=== PATIENT | male | born 1985 | race Caucasian/White ===

== ENCOUNTER 2020-08-01 15:25 | Emergency (ER) | payer MEDICAID, OTHER ==
[~2020-08-01] VITALS: Ht 185.4 cm; Wt 104.3 kg
[2020-08-01 16:01] VITALS: BP 177/112
[2020-08-01 19:39] LABS: Basophils # (auto) 0 10 ^3/uL (0-0.2); Basophils % (auto) 0.4 % (0.0-2.0); Eosinophils # (auto) 0.1 10 ^3/uL (0-0.8); Hematocrit 46.8 % (41.0-53.0); Hemoglobin 16.8 g/dL (13.5-17.5); Lymphocytes # (auto) 2.3 10 ^3/uL (0.4-5.4); Lymphocytes % (auto) 32.2 % (10.0-50.0); Mean Corpuscular Hemoglobin 33.4 pg (28.0-32.0); Mean Corpuscular Hgb Conc. 35.8 g/dL (32.0-36.0); Mean Corpuscular Volume 93.3 fL (80.0-100.0); Monocytes # (auto) 0.5 10 ^3/uL (0-1.3); Monocytes % (auto) 6.3 % (0.0-12.0); Neutrophils # (auto) 4.3 10 ^3/uL (1.6-8.6); Neutrophils % (auto) 60.1 % (37.0-80.0); Nucleated Red Blood Cells % 0.4 %; Platelet Count (auto) 357 10^3/uL (140-450); Red Blood Cells 5.02 10^6/uL (4.5-5.90); Red Cell Distribution Width 14.1 % (11.8-14.3); White Blood Cell 7.1 10^3/uL (4.4-10.8)
[2020-08-01 20:03] LABS: Albumin 3.6 g/dL (3.4-5.0); Calcium 8.3 mg/dL (8.5-10.1); Potassium 3.3 mmol/L (3.5-5.1)
[2020-08-01 20:09] LABS: Bilirubin, Total 0.5 mg/dL (0.2-1.0)
[2020-08-01 20:20] LABS: BUN/Creatinine Ratio 16.1; Blood Alcohol 87.3 mg/dL (0-5); Total Protein 8.3 g/dL (6.4-8.2)
== END 2020-08-01 19:30 | disposition left against medical advice (07) ==
LOC: ER 15:25
DX: R20.0 Anesthesia of skin (principal); Z53.21 Procedure and treatment not carried out due to patient leaving prior to being seen by health care provider
CPT/HCPCS: 36415; 80053; 80320; 85025

== ENCOUNTER 2022-02-19 06:39 | Emergency (ER) | payer MEDICAID ==
[~2022-02-19] VITALS: Ht 185.4 cm; Wt 105.2 kg
[2022-02-19 08:23] VITALS: BP 170/99
[2022-02-19] MEDS ORDERED: TETANUS-DIPTH-ACEL PERTUSSIS 0.5ML SYR Tdap IM ONE (10:00)
[2022-02-19] MEDS ORDERED: CEPH-509 PO (10:14)
== END 2022-02-19 10:24 | disposition home or self-care (01) ==
LOC: ER 06:39
DX: S61.216A Laceration without foreign body of right little finger without damage to nail, initial encounter (principal); W26.8XXA Contact with other sharp object(s), not elsewhere classified, initial encounter; Y93.89 Activity, other specified; Y92.89 Other specified places as the place of occurrence of the external cause; Y99.8 Other external cause status
CPT/HCPCS: 12002; 90471; 90715

== ENCOUNTER 2022-02-21 10:50 | Emergency (ER) | payer MEDICAID, OTHER ==
[~2022-02-21] VITALS: Ht 185.4 cm; Wt 104.3 kg
[~2022-02-21 10:50] MED LIST: CEPH-509 PO
[2022-02-21 10:57] VITALS: BP 189/79
== END 2022-02-21 11:47 | disposition home or self-care (01) ==
LOC: ER 10:58
DX: Z48.00 Encounter for change or removal of nonsurgical wound dressing (principal)

== ENCOUNTER 2022-03-02 11:26 | Emergency (ER) | payer OTHER ==
[~2022-03-02] VITALS: Ht 185.4 cm; Wt 104.3 kg
[2022-03-02 11:50] VITALS: BP 148/107
== END 2022-03-02 12:11 | disposition home or self-care (01) ==
LOC: ER 11:26
DX: S61.216D Laceration without foreign body of right little finger without damage to nail, subsequent encounter (principal); X58.XXXD Exposure to other specified factors, subsequent encounter

== ENCOUNTER 2022-10-09 16:48 | Emergency (ER) | payer BC, MEDICAID ==
[~2022-10-09] VITALS: Ht 185.4 cm; Wt 106.3 kg
[2022-10-09] MEDS ORDERED: PRED20TA2 PO (21:34)
[2022-10-09] MEDS ORDERED: AMOX-277 PO (21:34)
[2022-10-09 21:56] VITALS: BP 145/99
== END 2022-10-09 21:55 | disposition home or self-care (01) ==
LOC: ER 16:48
DX: J06.9 Acute upper respiratory infection, unspecified (principal); F12.10 Cannabis abuse, uncomplicated; Z98.890 Other specified postprocedural states; Z20.822 Contact with and (suspected) exposure to COVID-19
CPT/HCPCS: 36415; 87426; 87804

== ENCOUNTER 2023-06-16 17:39 | Emergency (ER) | payer BC, MEDICAID ==
[~2023-06-16] VITALS: Ht 180.3 cm; Wt 101.0 kg
[~2023-06-16 17:39] MED LIST changes: +AMOX875T4 PO; +PRED20TA2 PO
[2023-06-16 18:01] VITALS: BP 140/103; PULSE 126; RESP 19; O2SAT 95
[2023-06-16] MEDS ORDERED: LORazepam 2MG/ML-1ML VIAL IV ONE (18:15)
[2023-06-16] MEDS ORDERED: SODIUM CHLORIDE 0.9% 1,000 ML IV ONE (18:15)
[2023-06-16 18:44] LABS: Basophils # (auto) 0.1 10 ^3/uL (0-0.2); Basophils % (auto) 0.9 % (0.0-2.0); Eosinophils # (auto) 0 10 ^3/uL (0-0.8); Eosinophils % (auto) 0.5 % (0.0-7.0); Hematocrit 47.4 % (41.0-53.0); Hemoglobin 16.4 g/dL (13.5-17.5); Lymphocytes # (auto) 3.9 10 ^3/uL (0.4-5.4); Lymphocytes % (auto) 43.3 % (10.0-50.0); Mean Corpuscular Hemoglobin 32.3 pg (28.0-32.0); Mean Corpuscular Hgb Conc. 34.5 g/dL (32.0-36.0); Mean Corpuscular Volume 93.5 fL (80.0-100.0); Monocytes # (auto) 0.2 10 ^3/uL (0-1.3); Monocytes % (auto) 2.7 % (0.0-12.0); Neutrophils # (auto) 4.8 10 ^3/uL (1.6-8.6); Neutrophils % (auto) 52.6 % (37.0-80.0); Nucleated Red Blood Cells % 0.2 %; Red Blood Cells 5.07 10^6/uL (4.5-5.90); Red Cell Distribution Width 14.2 % (11.8-14.3); White Blood Cell 9.1 10^3/uL (4.4-10.8)
[2023-06-16 18:56] LABS: Chloride 103 mmol/L (98-107); Potassium 3.3 mmol/L (3.5-5.1); Sodium 140 mmol/L (136-145)
[2023-06-16 18:57] LABS: Anion Gap 12.6 (5-15); Calcium 9.2 mg/dL (8.7-10.4); Carbon Dioxide 24.4 mmol/L (20-30)
[2023-06-16 19:02] LABS: BUN/Creatinine Ratio 7.4 (10.0-20.0); Blood Alcohol 272.2 mg/dL (<10); Blood Urea Nitrogen 7 mg/dL (9-23); Glucose 177 mg/dL (74-106)
[2023-06-16] MEDS ORDERED: POTASSIUM CHL 20 Meq TABLET PO ONE (20:00)
[2023-06-16 20:37] LABS: Amphetamine Screen, Urine Neg (NEGATIVE); Barbiturate Scree,Urine Neg (NEGATIVE); Benzodiazephine Screen, Urine Neg (NEGATIVE); Cocaine Screen, Urine Neg (NEGATIVE); Opiate Scree,Urine Neg (NEGATIVE); Phencyclidine Screen, Urine Neg (NEGATIVE)
[2023-06-16 20:38] LABS: Cannabinoid Screen, Urine Pos (NEGATIVE)
== END 2023-06-17 01:10 | disposition left against medical advice (07) ==
LOC: ER 17:39
DX: R45.851 Suicidal ideations (principal); F10.129 Alcohol abuse with intoxication, unspecified; Z79.2 Long term (current) use of antibiotics; Z79.899 Other long term (current) drug therapy; Y90.8 Blood alcohol level of 240 mg/100 ml or more
CPT/HCPCS: 36415; 80048; 80307; 80320; 85025